=== PATIENT | male | born 1995 | race American Indian/Alaskan Native ===

== ENCOUNTER 2017-02-22 19:11 | Emergency (ER) | payer SELFPAY ==
[2017-02-22] MEDS ORDERED: NORCO 5/325 ONE (19:25)
[2017-02-22] MEDS ORDERED: NORCO 5/325 PO ONE (19:32)
[2017-02-22] MEDS ORDERED: MORPHINE ONE (19:46)
[2017-02-22] MEDS ORDERED: MORPHINE IM ONE (19:49)
--- NOTE | 2017-02-22 19:52 | Emergency Department Report ---
ED Upper Extremity Inj HPI - General Chief Complaint: Extremity Injury, Upper Stated Complaint: L SHOULDER PAIN/POSS DISLOCATION Time Seen by Provider: 02/22/17 19:48 Source: patient, family Mode of arrival: Ambulatory Limitations: No Limitations - History of Present Illness Initial Comments: Patient 21-year-old male here with left shoulder dislocation. Patient states he extended his arm the wrong direction and felt a pop. He has not is deformity. Decreased range of motion. He is able to move his fingers without any difficulty. He is had this happened 5 times in the past. MD Complaint: Injury to:: left -: Sudden Other Extremity Injury: Shoulder: Left Other Injuries: none Worsens With: movement of extremity Context: other Associated Symptoms: denies other symptoms. denies: weakness, numbness - Related Data Previous Rx's Medication Instructions Recorded Last Taken Type HYDROcodone/APAP 5-325 [[place] 1 each PO Q6HR PRN #10 tablet 02/22/17 Unknown Rx 5-325 mg TAB] Ibuprofen [Motrin] 600 mg PO Q8H PRN #30 tablet 02/22/17 Unknown Rx Allergies Allergy/AdvReac Type Severity Reaction Status Date / Time No Known Allergies Allergy Verified 03/04/16 01:37 ED Review of Systems ROS: Stated complaint: L SHOULDER PAIN/POSS DISLOCATION Other details as noted in HPI Eyes: denies: eye pain ENT: denies: ear pain, throat pain Respiratory: denies: cough, orthopnea Cardiovascular: denies: chest pain, palpitations Gastrointestinal: denies: abdominal pain, nausea Musculoskeletal: other (shoulder pain) Neurological: denies: headache, weakness ED Past Medical Hx - Past Medical History Previous Medical History?: Yes Additional medical history: Dislocated left shoulder. Orriginal Injury from Basketball - Surgical History Past Surgical History?: Yes Additional Surgical History: SHOULDERS - Family History Family history: no significant - Social History Smoking Status: Current Every Day Smoker Substance Use Type: Alcohol, Marijuana - Medications Home Medications: Home Medications Medication Instructions Recorded Confirmed Last Taken Type HYDROcodone/APAP 5-325 [[place] 1 each PO Q6HR PRN #10 tablet 02/22/17 Unknown Rx 5-325 mg TAB] Ibuprofen [Motrin] 600 mg PO Q8H PRN #30 tablet 02/22/17 Unknown Rx ED Physical Exam - General Limitations: No Limitations General appearance: alert, in no apparent distress - Neck Neck exam: Present: normal inspection, tenderness - Respiratory Respiratory exam: Present: normal lung sounds bilaterally, respiratory distress - Cardiovascular Cardiovascular Exam: Present: regular rate, normal rhythm - Expanded Upper Extremity Exam Left Shoulder Exam: Present: tenderness, deformity. Absent: full ROM, swelling, abrasion Neuro motor exam: Present: wrist extension intact, thumb opposition intact Vascular: Present: normal capillary refill. Absent: vascular compromise - Neurological Exam Neurological exam: Present: alert, oriented X3 - Psychiatric Psychiatric exam: Present: normal affect, normal mood ED Course Vital Signs 02/22/17 02/22/17 02/22/17 19:20 19:54 19:56 Temperature 98.3 F Pulse Rate 63 Respiratory 18 18 18 Rate Blood Pressure 131/77 [Right] O2 Sat by Pulse 100 Oximetry 02/22/17 20:04 Temperature 98.3 F Pulse Rate 57 L Respiratory 18 Rate Blood Pressure 134/75 [Right] O2 Sat by Pulse 98 Oximetry - Orthopedic Joint Reduction Joint #1 Consent Obtained: verbal consent Time Out Performed: Yes Side: left Joint Reduction Location: shoulder Analgesia: none Shoulder Technique Used (if applicable): scapula manipulation Post-Reduction Neuro Exam: intact Post-Reduction Vascular Exam: intact Post Reduction X-Ray Obtained: Yes Post Reduction X-Ray Results: reduced Splint Applied: Yes Patient Tolerated Procedure: well ED Medical Decision Making - Medical Decision Making Patient is a 18-year-old male here with complaint of left shoulder dislocation. Discussed reduction with patient planned to use scapular manipulation to reduce. Patient reduced without difficulty. Plan to discharge home. We'll give follow- up for orthopedics. Portions of this chart were dictated with dictation software. There may be dictation errors contained within this note. Critical care attestation.: If time is entered above; I have spent that time in minutes in the direct care of this critically ill patient, excluding procedure time. ED Disposition Clinical Impression: Anterior shoulder dislocation Disposition: - TO HOME OR SELFCARE Is pt being admited?: No Condition: Stable Instructions: Shoulder Dislocation (ED) Prescriptions: HYDROcodone/APAP 5-325 [[place] 5-325 mg TAB] 1 each PO Q6HR PRN #10 tablet PRN Reason: Pain Ibuprofen [Motrin] 600 mg PO Q8H PRN #30 tablet PRN Reason: Pain Referrals: MARCO MONCADA MD [Staff Physician] - 3-5 Days
[2017-02-22 20:09] VITALS: BP 134/75
--- NOTE | 2017-02-22 22:57 | Event Note ---
Date: 02/22/17 I had been requested by Dr. Alcantar to follow-up the x-ray of the shoulder. Patient had had the shoulder reduced for a shoulder dislocation while in the emergency room. The repeat x-ray shows that the shoulder is appropriately reduced.
--- NOTE | 2017-02-23 07:48 | XRay Report ---
LEFT SHOULDER RADIOGRAPHS INDICATION: Left shoulder dislocation, pain. COMPARISON: 09/19/2011. FINDINGS: Frontal and attempted Y views of the left shoulder again suggest anteroinferior glenohumeral dislocation. Mild Hill-Sachs deformity suspected. Intact AC articulation. Normal imaged lung and ribs. Some extrinsic artifacts. CONCLUSION: Left shoulder dislocation, as described with the same also previously noted in August 2011 and April 2009. Thank you for the opportunity to participate in this patient's care.
--- NOTE | 2017-02-23 07:49 | XRay Report ---
LEFT SHOULDER RADIOGRAPH INDICATION: Postreduction. COMPARISON: 7:31 PM earlier today. FINDINGS: Portable, single, frontal left shoulder view, 8:23 PM, 02/22/2017 now demonstrates satisfactory humeral head position against the glenoid. Hill-Sachs deformity suspected. Intact acromioclavicular articulation as well. CONCLUSION: Post reduction left shoulder radiograph, as described. Please correlate. Thank you for the opportunity to participate in this patient's care.
== END 2017-02-22 21:00 | disposition home or self-care (01) ==
LOC: ED 19:11
DX: S43.005A Unspecified dislocation of left shoulder joint, initial encounter (principal); F17.200 Nicotine dependence, unspecified, uncomplicated; F12.90 Cannabis use, unspecified, uncomplicated; X58.XXXA Exposure to other specified factors, initial encounter; Y93.89 Activity, other specified; Y99.9 Unspecified external cause status; Y92.89 Other specified places as the place of occurrence of the external cause
CPT/HCPCS: 23650; 73020; 73030; 96372; 99283; J2270

== ENCOUNTER 2017-03-02 10:48 | Emergency (ER) | payer SELFPAY ==
[2017-03-02 10:59] VITALS: BP 150/102
--- NOTE | 2017-03-02 22:22 | Emergency Department Report ---
Entered by NYDIA RIVAS, acting as scribe for MADELAINE QUINTEROS NP. ED Medical Clearance HPI - General Chief complaint: Medical Clearance Stated complaint: CLEARANCE FOR WORK Time Seen by Provider: 03/02/17 12:24 Source: patient Mode of arrival: Ambulatory Limitations: No Limitations - History of Present Illness Initial comments: This is a 21 y/o male that is nontoxic, well nourished in appearance, no acute signs of distress with no significant PMHx presents to the ED c/o medical clearance for 2 weeks. Patient states he dislocated his left shoulder 2 weeks ago while laying down awkwardly, and his shoulder was subsequently reduced in this ED. Reports he needs medical clearance to go back to work. Denies decreased ROM to left shoulder, and numbness and tingling in hands. NKDA. MCNAIR Complaint: medical clearance request Onset/Timin -: week(s) Reason for Medical Clearance: other (go back to work) Place: home Alledged Intoxication: No Compliant with Home Medications: Yes Traumatic Symptoms: denies traumatic injury Associated Symptoms: denies other symptoms. denies: chest pain, shortness of breath, palpitations, diaphoresis, confusion, cough, fever/chills, headaches, anorexia, malaise, nausea/vomiting, rash, seizure, syncope, weakness Treatments Prior to Arrival: medication Home medications: Previous Rx's Medication Instructions Recorded Last Taken Type HYDROcodone/APAP 5-325 [[place] 1 each PO Q6HR PRN #10 tablet 02/22/17 Unknown Rx 5-325 mg TAB] Ibuprofen [Motrin] 600 mg PO Q8H PRN #30 tablet 02/22/17 Unknown Rx Allergies/Adverse reactions: Allergies Allergy/AdvReac Type Severity Reaction Status Date / Time No Known Allergies Allergy Verified 03/02/17 10:54 ED Review of Systems Comment: All other systems reviewed and negative Constitutional: denies: chills, fever Eyes: denies: eye pain, eye discharge, vision change ENT: denies: ear pain, throat pain Respiratory: denies: cough, shortness of breath, wheezing Cardiovascular: denies: chest pain, palpitations Endocrine: no symptoms reported Gastrointestinal: denies: abdominal pain, nausea, vomiting, diarrhea Musculoskeletal: denies: back pain, joint swelling, arthralgia, myalgia Skin: denies: rash, lesions Neurological: denies: headache, weakness, numbness, paresthesias ED Past Medical Hx - Past Medical History Previous Medical History?: Yes Additional medical history: Dislocated left shoulder. Orriginal Injury from Basketball - Surgical History Additional Surgical History: SHOULDERS - Social History Smoking Status: Current Every Day Smoker Substance Use Type: Alcohol - Medications Home Medications: Home Medications Medication Instructions Recorded Confirmed Last Taken Type HYDROcodone/APAP 5-325 [[place] 1 each PO Q6HR PRN #10 tablet 02/22/17 Unknown Rx 5-325 mg TAB] Ibuprofen [Motrin] 600 mg PO Q8H PRN #30 tablet 02/22/17 Unknown Rx ED Physical Exam - General Limitations: No Limitations General appearance: alert, in no apparent distress - Head Head exam: Present: atraumatic, normocephalic - Eye Eye exam: Present: normal appearance, PERRL, EOMI Pupils: Present: normal accommodation - ENT ENT exam: Present: normal exam, mucous membranes moist, normal external ear exam - Neck Neck exam: Present: normal inspection, full ROM. Absent: tenderness, meningismus, lymphadenopathy - Respiratory Respiratory exam: Present: normal lung sounds bilaterally. Absent: respiratory distress, wheezes, rales, rhonchi, stridor, accessory muscle use, decreased breath sounds - Cardiovascular Cardiovascular Exam: Present: regular rate, normal rhythm, normal heart sounds. Absent: systolic murmur, diastolic murmur, rubs, gallop - GI/Abdominal GI/Abdominal exam: Present: soft, normal bowel sounds. Absent: distended - Extremities Exam Extremities exam: Present: normal inspection, full ROM, normal capillary refill. Absent: tenderness, pedal edema, joint swelling, calf tenderness - Expanded Upper Extremity Exam Left General: Present: normal inspection Shoulder Exam: Present: normal inspection, full ROM. Absent: tenderness, swelling, abrasion, laceration, ecchymosis, deformity, crepidus, dislocation, erythema, tenderness over AC joint - Back Exam Back exam: Present: normal inspection, full ROM - Neurological Exam Neurological exam: Present: alert, oriented X3, CN II-XII intact, normal gait, reflexes normal. Absent: abnormal gait, motor sensory deficit - Psychiatric Psychiatric exam: Present: normal affect, normal mood - Skin Skin exam: Present: warm, dry, intact. Absent: rash ED Course Vital Signs 03/02/17 10:55 Temperature 98.6 F Pulse Rate 77 Respiratory 16 Rate Blood Pressure 150/102 O2 Sat by Pulse 100 Oximetry ED Medical Decision Making - Medical Decision Making Patient was referred to Dr. Francois for medical clearance. ED Disposition Clinical Impression: Encounter for medical clearance for patient hold Disposition: DC-01 TO HOME OR SELFCARE Is pt being admited?: No Does the pt Need Aspirin: No Condition: Stable Additional Instructions: Follow-up with Dr. Francois at [phone] for medical clearance Referrals: PRIMARY CAREMD [Primary Care Provider] - 3-5 Days MARCO FRANCOIS MD [Staff Physician] - 3-5 Days This documentation as recorded by the ROB ryan JASMINE,accurately reflects the service I personally performed and the decisions made by ,MADELAINE QUINTEROS, BERT.
== END 2017-03-02 12:51 | disposition home or self-care (01) ==
LOC: ED 10:48
DX: Z00.00 Encounter for general adult medical examination without abnormal findings (principal); F17.210 Nicotine dependence, cigarettes, uncomplicated
CPT/HCPCS: 99282

== ENCOUNTER 2019-02-02 18:45 | Emergency (ER) | payer SELFPAY ==
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
[2019-02-02 19:47] VITALS: BP 157/90
== END 2019-02-02 20:47 | disposition left against medical advice (07) ==
LOC: ED 18:45
DX: R51 Headache (principal); Z53.21 Procedure and treatment not carried out due to patient leaving prior to being seen by health care provider

== ENCOUNTER 2021-07-08 15:53 | Emergency (ER) | payer BC ==
[2021-07-08] MEDS ORDERED: TETANUS,DIPH,PERTUSS(ACELL) VACCINE 0.5 ML SYRINGE IM ONE (16:42)
[2021-07-08] MEDS ORDERED: NEOMY 3.5 MG/BACIT 400 UNITS/POLY B 5000 UNITS/GM OINT PACKET TP ONE (16:42)
--- NOTE | 2021-07-08 16:45 | Emergency Department Report ---
ED Lower Extremity HPI - General Chief Complaint: Extremity Injury, Lower Stated Complaint: STEPPED ON A NAIL Time Seen by Provider: 07/08/21 16:30 Source: patient Mode of arrival: Ambulatory Limitations: No Limitations - History of Present Illness Initial Comments: Patient is a 25-year-old male presents emergency room with complaints of a puncture wound to his right foot that occurred around 7:30 AM this morning. He states that he was wearing boots at the time. He states that he stepped on a nail which punctured his foot he denies the nail getting stuck in the foot. He is still able to ambulate. He states that there was some small bleeding initially but it resolved after he placed gauze. He denies any numbness or weakness he is still able to move the foot and the digits. He denies any past medical history. No allergies to medications. He is unsure of his last tetanus immunization - Related Data Previous Rx's Medication Instructions Recorded Last Taken Type HYDROcodone/APAP 5-325 [[place] 1 each PO Q6HR PRN #10 tablet 02/22/17 Unknown Rx 5-325 mg TAB] Ibuprofen [Motrin] 600 mg PO Q8H PRN #30 tablet 02/22/17 Unknown Rx Mupirocin [Bactroban 2% OINT] 1 applic TP TID #1 tube 07/08/21 Unknown Rx cephALEXin [Keflex] 500 mg PO QID 7 Days #28 capsule 07/08/21 Unknown Rx Allergies Allergy/AdvReac Type Severity Reaction Status Date / Time No Known Allergies Allergy Verified 07/08/21 16:31 ED Review of Systems ROS: Stated complaint: STEPPED ON A NAIL Other details as noted in HPI Comment: All other systems reviewed and negative ED Past Medical Hx - Past Medical History Additional medical history: Dislocated left shoulder. Orriginal Injury from Basketball - Surgical History Additional Surgical History: SHOULDERS - Social History Smoking Status: Current Every Day Smoker - Medications Home Medications: Home Medications Medication Instructions Recorded Confirmed Last Taken Type HYDROcodone/APAP 5-325 [[place] 1 each PO Q6HR PRN #10 tablet 02/22/17 Unknown Rx 5-325 mg TAB] Ibuprofen [Motrin] 600 mg PO Q8H PRN #30 tablet 02/22/17 Unknown Rx Mupirocin [Bactroban 2% OINT] 1 applic TP TID #1 tube 07/08/21 Unknown Rx cephALEXin [Keflex] 500 mg PO QID 7 Days #28 capsule 07/08/21 Unknown Rx ED Physical Exam - General Limitations: No Limitations General appearance: alert, in no apparent distress - Head Head exam: Present: atraumatic, normocephalic - Eye Eye exam: Present: normal appearance - ENT ENT exam: Present: mucous membranes moist - Neurological Exam Neurological exam: Present: alert, oriented X3 - Psychiatric Psychiatric exam: Present: normal affect, normal mood - Skin Skin exam: Present: warm, dry, other (2 mm puncture wound present to the right dorsal foot, no bleeding, superficial, no ttp, no edema or erythema, no bony ttp, FROM, neurovascularly intact) ED Course Vital Signs 07/08/21 07/08/21 16:26 17:14 Temperature 98.2 F Pulse Rate 111 H 109 H Respiratory 16 16 Rate Blood Pressure 173/96 132/79 [Left] O2 Sat by Pulse 98 98 Oximetry ED Lower Extremity MDM - Lab Data Vital Signs 07/08/21 07/08/21 16:26 17:14 Temperature 98.2 F Pulse Rate 111 H 109 H Respiratory 16 16 Rate Blood Pressure 173/96 132/79 [Left] O2 Sat by Pulse 98 98 Oximetry - Medical Decision Making Patient is a 25-year-old male presents emergency room with complaints of a puncture wound to his right foot that occurred around 7:30 AM this morning. He states that he was wearing boots at the time. He states that he stepped on a nail which punctured his foot he denies the nail getting stuck in the foot. He is still able to ambulate. He states that there was some small bleeding initially but it resolved after he placed gauze. He denies any numbness or weakness he is still able to move the foot and the digits. He denies any past medical history. No allergies to medications. He is unsure of his last tetanus immunization. Initial vitals with elevated heart rate and blood pressure which improved upon repeat. On exam:2 mm puncture wound present to the right dorsal foot, no bleeding, superficial, no ttp, no edema or erythema, no bony ttp, FROM, neurovascularly intact. Patient's Tdap was updated. Wound care performed by nurse. Patient given prescription for medications. Advised patient Please use medication as prescribed. Please keep area clean, dry, covered. Wash with antibacterial soap and water pat dry. Follow-up with your primary care doctor. Please see your primary care doctor regarding the elevation in your blood pressure during today's visit. Eat a low-sodium diet. Increase your water intake. Incorporate 30 to 60 minutes of daily exercise and consider weight management. Return to emergency room for any new or worsening symptoms. Critical care attestation.: If time is entered above; I have spent that time in minutes in the direct care of this critically ill patient, excluding procedure time. ED Disposition Clinical Impression: Elevated blood pressure reading Puncture wound of right foot Qualifiers: Encounter type: initial encounter Qualified Code(s): S91.331A - Puncture wound without foreign body, right foot, initial encounter Disposition: HOME / SELF CARE / HOMELESS Is pt being admited?: No Does the pt Need Aspirin: No Condition: Stable Instructions: Puncture Wound, Managing Your Hypertension Additional Instructions: Please use medication as prescribed. Please keep area clean, dry, covered. Wash with antibacterial soap and water pat dry. Follow-up with your primary care doctor. Please see your primary care doctor regarding the elevation in your blood pressure during today's visit. Eat a low-sodium diet. Increase your water intake. Incorporate 30 to 60 minutes of daily exercise and consider weight management. Return to emergency room for any new or worsening symptoms. Prescriptions: Mupirocin [Bactroban 2% OINT] 1 applic TP TID #1 tube cephALEXin [Keflex] 500 mg PO QID 7 Days #28 capsule Referrals: SAI JONAS MD [Staff Physician] - 3-5 Days [facility] [Provider Group] - 3-5 Days Time of Disposition: 16:44 Print Language: [place]
[2021-07-08 17:15] VITALS: BP 132/79
== END 2021-07-08 17:14 | disposition home or self-care (01) ==
LOC: ED 15:53
DX: S91.331A Puncture wound without foreign body, right foot, initial encounter (principal); R03.0 Elevated blood-pressure reading, without diagnosis of hypertension; Z98.890 Other specified postprocedural states; F17.200 Nicotine dependence, unspecified, uncomplicated; W22.8XXA Striking against or struck by other objects, initial encounter; Y93.89 Activity, other specified; Y92.89 Other specified places as the place of occurrence of the external cause; Y99.8 Other external cause status
CPT/HCPCS: 90471; 90715; 99282